=== PATIENT | female | born 1990 | race Caucasian/White ===

== ENCOUNTER 2017-04-20 15:34 | Inpatient (IN) | payer OTHER ==
[2017-04-20] VITALS (10 sets, daily range): BP systolic 110–119; BP diastolic 58–69
[~2017-04-20 15:34] MED LIST: ASPIR 8181 M1 PO; CLARITIN10 M3 PO; LEVOXYL100 MCG PO; MOTRIN600 MG PO; PRENATAL TABLE1 EAC3 PO; VENTOLIN HFA18 GM IH
[2017-04-20 16:39] LABS: BASOPHIL COUNT 0.1 K/uL (0-0.1); EOSINOPHIL (%) 0.4 % (0-5); EOSINOPHIL COUNT 0.1 K/uL (0-0.3); HEMATOCRIT 37.1 % (36.0-46.0); IMMATURE GRANULOCYTE COUNT 0.2 K/uL; INSTRUMENT ABS NEUTROPHIL CT 12.6 K/uL; LYMPHOCYTE COUNT 2.7 K/uL (1.0-2.8); MCH 31.5 PG (29.0-34.0); MCHC 34.2 G/DL (30.0-36.0); MCV 92.1 FL (83-99); MEAN PLAT.VOLUME 10.9 uM^3 (9.5-12.4); MONOCYTE (%) 7.4 % (3-12); MONOCYTE COUNT 1.3 K/uL (0-0.8); NEUTROPHIL (%) 74.9 % (45-76); NEUTROPHIL COUNT 12.6 K/uL (1.8-6.4); PLATELET COUNT 200 K/uL (156-360); RBC DIS.WIDTH-CV 11.9 % (11.8-14.6); RBC DIS.WIDTH-SD 40.2 % (39-53); RED BLOOD COUNT 4.03 M/uL (3.80-5.20); WHITE BLOOD COUNT 16.9 K/uL (4.1-10.2)
[2017-04-20] MEDS ORDERED: MOTRIN400 MG PO (17:33)
[2017-04-21 07:29] VITALS: BP 99/58
[2017-04-21 14:49] VITALS: BP 85/48
[2017-04-21 23:31] VITALS: BP 103/59
[2017-04-22 07:35] VITALS: BP 108/71
[2017-04-22 11:34] VITALS: BP 109/66
== END 2017-04-22 14:30 | disposition home or self-care (01) | DRG 775 ==
LOC: LDRP-OP 15:34 → 2WEST 15:35 → LDRP-OP 05-21 15:32
PROVIDERS: Nurse Practitioner
DX: O99.113 Other diseases of the blood and blood-forming organs and certain disorders involving the immune mechanism complicating pregnancy, third trimester (principal); D68.2 Hereditary deficiency of other clotting factors; O99.284 Endocrine, nutritional and metabolic diseases complicating childbirth; E03.9 Hypothyroidism, unspecified; Z3A.39 39 weeks gestation of pregnancy; Z37.0 Single live birth; O99.513 Diseases of the respiratory system complicating pregnancy, third trimester; J45.909 Unspecified asthma, uncomplicated
CPT/HCPCS: 85025; C1755; J3010; J7120